=== PATIENT | male | born 1950 | race Caucasian/White ===

== ENCOUNTER 2020-11-22 11:15 | Day surgery (SDC) | payer MEDICARE ==
[~2020-11-22] VITALS: Ht 174 cm; Wt 75.5 kg
[2020-11-22 12:19] VITALS: BP 147/76
[2020-11-22] MEDS ORDERED: CHLORHEXIDINE 15 ML UDC PO ONE (12:30)
[2020-11-22] MEDS ORDERED: LEVOQUIN PO (12:35)
[2020-11-22] MEDS ORDERED: [UNRECOGNIZED DRUG - CODE] PO (12:35)
[2020-11-22] MEDS ORDERED: ACYC200C13 PO (12:35)
[2020-11-22] MEDS ORDERED: CHLORHEXIDINE 15 ML UDC ONE (12:40)
[2020-11-22] MEDS ORDERED: LACTATED RINGERS 1,000 ML IV SCH (13:30)
[2020-11-22] MEDS ORDERED: PROPOFOL 10 MG/ML, 50ML ONE (13:38)
[2020-11-22] MEDS ORDERED: CIPROFLOXACIN/PMX 400MG/200ML 200 ML ONE (13:52)
== END 2020-11-22 16:30 | disposition home or self-care (01) ==
LOC: OUT 11:15
PROVIDERS: ATTEND Internal Medicine Geriatric Medicine
DX: R93.89 Abnormal findings on diagnostic imaging of other specified body structures (principal); C92.00 Acute myeloblastic leukemia, not having achieved remission; K21.9 Gastro-esophageal reflux disease without esophagitis; Z79.899 Other long term (current) drug therapy; Z88.0 Allergy status to penicillin; Z98.890 Other specified postprocedural states; Z20.822 Contact with and (suspected) exposure to COVID-19
CPT/HCPCS: 43242; 87635; 88172; 88173; 88305; 93005; J0744; J2704